=== PATIENT | male | born 1960 | race Two or more races ===

== ENCOUNTER 2019-04-09 07:28 | Emergency (ER) ==
[~2019-04-09] VITALS: Ht 182.9 cm; Wt 111.1 kg
--- NOTE | 2019-04-09 08:15 | NUR ---
Social service consult requested by Dr. Arrieta for homelessness. Pt. is a 58 year old male who came to [facility] ED due to syncope. SW met with pt. bedside. Pt. is alert and oriented x 4. Pt's hair appeared disheveled. Pt. was friendly and cooperative with SW during the assessment. Pt. states he has been living in his car, however his car got impounded and he is currently trying to get it out of the impound. Pt. states he has been living in his truck for the past few years. Pt. is an interstate truck unloader by profession. Pt. states he was about to receive his paycheck of $1900, however his employer garnished his wages because he owed the [employer] some money. Pt. appears depressed about it but stated he has resolved it and will get his money in a week. Pt. declined [facility] placement. Pt. denies using drugs or smoking cigarettes. Pt. states he drinks alcohol occasionally. Pt. denies any psychiatric diagnoses. Pt. denies suicidal and homicidal ideations. Pt. accepted the following resources: [facility] located at [address]. ; . [facility] [place], [address] ; [facility] [place], [address] ; [facility] Homeless Resource Directory which includes food stamps, transitional housing, showers and hot meals etc; Mental Health clinics such as [facility] ; [facility] ; Health clinics;[facility] and Alcohol treatment centers such as [facility], ; [facility] Substance Abuse Hotline and [facility] . Breakfast and TAP card were provided to the pt. No other social service needs are requested at this time. Homeless Patient Waiver Form was signed by the pt. and placed in pt's chart. SW updated Dr. Arrieta and ROBERTA Rosales regarding pt's discharge plan.
--- NOTE | 2019-04-09 08:25 | NUR ---
DOC SW AT BEDSIDE TALKING TO PATIENT.
--- NOTE | 2019-04-09 08:39 | NUR ---
PT PROVIDED W/ BREAKFAST TRAY.
--- NOTE | 2019-04-09 09:31 | NUR ---
PT MEDICALLY CLEARED BY ERMD. PT WAS SEEN BY RN ON SITE, PROVIDED W/ REFFERAL AND TAPCARD. D/C IN STABLE CONDITION.
[2019-04-09 09:34] VITALS: BP 132/66
== END 2019-04-09 09:34 | disposition home or self-care (01) ==
LOC: ER 07:30
DX: F32.9 Major depressive disorder, single episode, unspecified (principal)

== ENCOUNTER 2021-10-28 19:30 | Emergency (ER) | payer MEDICAID ==
[~2021-10-28] VITALS: Ht 188 cm; Wt 111.1 kg
--- NOTE | 2021-10-28 19:40 | NUR ---
BIBS C/O SWELLING TO LEFT NECK X 8 DAYS. DENIES ANY PAIN. BREATHING EVEN AND UNLABORED CONNECTED TO MONITOR AND PULSE OX 100% [employer] CARRANZA WAS AT BEDSIDE FOR EVAL.
[2021-10-28] MEDS ORDERED: CEFEPIME 1 GM VIAL ONE (21:28)
[2021-10-28] MEDS ORDERED: CEFEPIME 1 GM in IV D5W 50 ML IV ONE (21:30)
[2021-10-28] MEDS ORDERED: VANCOMYCIN 1 GM in IV D5W 250 ML IV ONE (21:30)
[2021-10-28] MEDS ORDERED: IV NS 0.9% 1,000 ML BAG IV ONE ×2 (21:30→23:30)
[2021-10-28 21:52] LABS: BASOPHILS % (AUTO) 0.4 % (0.0-2.0); EOSINOPHILS % (AUTO) 4.4 % (0.0-6.0); HEMATOCRIT 43 % (39-51); HEMOGLOBIN 14.8 g/dL (13.5-17.5); LYMPHOCYTES # (AUTO) 3.4 K/uL (0.8-4.8); LYMPHOCYTES % (AUTO) 35.4 % (20.0-44.0); MEAN CORPUSCULAR HGB CONC 35 g/dl (31.0-36.0); MEAN CORPUSCULAR VOLUME 87 fL (80-96); MONOCYTES # (AUTO) 0.9 K/uL (0.1-1.30); MONOCYTES % (AUTO) 9.4 % (2.0-12.0); NEUTROPHILS # (AUTO) 4.8 K/uL (1.8-8.9); NEUTROPHILS % (AUTO) 50.4 % (43.0-81.0); PLATELET COUNT (AUTO) 310 K/uL (150-450); RED BLOOD CELL COUNT(AUTO) 4.86 MIL/uL (4.5-6.0); WHITE BLOOD COUNT (AUTO) 9.6 K/uL (4.3-11.0)
[2021-10-28] MEDS ORDERED: LORAZEPAM INJ 2 MG/ML VIAL IV ONE (22:00)
[2021-10-28] MEDS ORDERED: LORAZEPAM INJ 2 MG/ML VIAL ONE (22:01)
[2021-10-28] MEDS ORDERED: VANCOMYCIN 1 GM VIAL ONE ×2 (22:01→22:22)
[2021-10-28 22:17] LABS: ALANINE AMINOTRANSFERASE 33 U/L (12-78); ALBUMIN 3.3 g/dL (3.4-5.0); ALKALINE PHOSPHATASE 175 U/L (46-116); BILIRUBIN,DIRECT 0.1 mg/dL (0.0-0.2); BILIRUBIN,TOTAL 0.4 mg/dL (0.2-1.0); CALCIUM, SERUM 10.5 mg/dL (8.5-10.1); CARBON DIOXIDE 25 mmol/L (21-32); CHLORIDE 103 mmol/L (98-107); CREATININE 1.3 mg/dL (0.6-1.3); GLUCOSE 121 mg/dL (74-106); POTASSIUM 4.2 mmol/L (3.5-5.1); SODIUM SERUM 137 mmol/L (136-145); TOTAL PROTEIN, SERUM 8.6 g/dL (6.4-8.2); UREA NITROGEN, BLOOD 31 mg/dL (7-18)
[2021-10-28] MEDS ORDERED: IV NS 0.9% 250 ML IV ONE (22:35)
[2021-10-28] MEDS ORDERED: CT SWABBABLE VALVE TRANS SET 1 EA INFUS.SET MC ONE (22:35)
[2021-10-28] MEDS ORDERED: IOHEXOL-300 100 ML VIAL IV ONE (22:35)
--- NOTE | 2021-10-28 22:41 | NUR ---
LACTIC 2.0
[2021-10-28 23:53] LABS: ASPARTATE AMINOTRANSFERASE 38 U/L (15-37)
--- NOTE | 2021-10-28 23:59 | NUR ---
PATIENT BEING TAKEN TO CT
--- NOTE | 2021-10-29 00:10 | NUR ---
back from ct
--- NOTE | 2021-10-29 00:46 | NUR ---
PT REFUSED BLOOD DRAW FOR LACTIC REDRAW. AWARE
--- NOTE | 2021-10-29 01:41 | NUR ---
Patient discharged to home in stable condition. Written and verbal after care instructions given. Patient verbalizes understanding of instruction. IV line discontinued gentle pressure applied to site with gauze without issue. all v/s stable at time of d/c.
[2021-10-29 01:49] VITALS: BP 155/87
== END 2021-10-29 01:41 | disposition home or self-care (01) ==
LOC: ER 19:33
DX: R22.1 Localized swelling, mass and lump, neck (principal); F41.9 Anxiety disorder, unspecified; R59.0 Localized enlarged lymph nodes; E86.0 Dehydration; Z20.822 Contact with and (suspected) exposure to COVID-19
CPT/HCPCS: 36415; 70491; 71045; 80048; 80076; 83605; 85025; 85730; 87040 ×2; 87426; 96361; 96365; 96367; 96375; 99285; C9803; J0692; J2060; J3370; J7030 ×2; J7050; J7060 ×2; Q9967